=== PATIENT | female | born 1970 | race Caucasian/White ===

== ENCOUNTER → 2016-10-26 | Outpatient (CLI) | payer OTHER ==
[~2016-10-26] MED LIST: CHOL2000 PO; CIPR-255 PO; FOLI1TAB7 PO; LANS15CA6 PO; LEVE500T13 PO; LORA-741 PO; METF850T PO; MISCCAP80 PO; MULT-1018 PO; NAPR250T2 PO; OXYC-57 PO; SPIR50TA2 PO; VITA1CAP4 PO
--- NOTE | 2016-10-26 11:39 | DIAGNOSTIC IMAGING REPORT ---
CT SINUSES WITH BRAIN LAB CT DOSE: 285.25 mGycm CLINICAL HISTORY: Chronic sinusitis. TECHNIQUE: Axial images of the sinuses were obtained without IV contrast. Sagittal and coronal reconstructions were viewed. COMPARISON STUDY: None. FINDINGS: Visualized portions of the intracranial contents are unremarkable on this unenhanced exam. Mastoid air cells are clear. There is no fluid within the middle ears. There is a small air-fluid level within the right maxillary sinus. A 1.3 cm round density within the inferior aspect of the right maxillary sinus likely reflects a mucous retention cyst. Postsurgical findings are noted, including postsurgical findings within the ethmoid air cells and a resection of a portion of the medial wall the right maxillary sinus. There are small joel bullosa of the bilateral middle turbinates. Note is made of mild leftward deviation of the nasal septum without significant spur formation. Cribriform plate is intact. There is moderate mucosal thickening with secretions within the left frontal sinus. IMPRESSION: 1. Small air-fluid level within the right maxillary sinus and secretions within the left frontal sinus which may reflect acute sinusitis. 2. Otherwise, mild mucosal thickening of the sinuses. 3. Postsurgical findings within the ethmoid and maxillary sinuses, as described above. 4. Mild leftward deviation of the nasal septum. Electronically signed by: Lorenzo Morris M.D. 10/26/2016 11:38 AM Dictated Date/Time: 10/26/2016 11:33 AM
== END | disposition home or self-care (01) ==
LOC: C.CTS 11:03
PROVIDERS: ATTEND Otolaryngology
DX: J32.9 Chronic sinusitis, unspecified (principal); J34.2 Deviated nasal septum

== ENCOUNTER → 2016-12-08 | Day surgery (SDC) | payer OTHER ==
[2016-11-30 11:35] VITALS: Ht 170.2 cm; Wt 93.2 kg
[~2016-12-08] VITALS: Ht 170.2 cm; Wt 93.2 kg
[~2016-12-08] MED LIST changes: +ATROPINE SULFATE 0.1 MG/ML 5ML SYR IV PRN; +CEFAZOLIN 2000 MG/60 ML D5W IV SCH; +DEXAMETHASONE SOD INJ 4 MG/ML VIAL ONE; +EpHEDrine SULFATE 50MG/5ML SYR ONE; +EpHEDrine SULFATE INJ 50 MG/ML AMP IV PRN; +EpINEphrine INJ 1MG/ML AMP 1 MG/ML AMP ONE; +FENTANYL CITRATE INJ 50 MCG/1 ML 2 ML VIAL IV PRN; +FENTANYL CITRATE INJ 50 MCG/1 ML 2 ML VIAL ONE; +LACTATED RINGER'S 1000ML 1,000 ML IV SCH; +LIDO 2%/EPINEPHRINE 1:100000 20 ML VIAL INFIL ONE; +LIDOCAINE 4% MPF SOAK 5 ML = 1 DOSE TOP ONE; +LIDOCAINE HCL 2% 2 ML VIAL (20MG/ML) ONE; +MIDAZOLAM HCL 1 MG/ML 2ML VIAL ONE; +NAPR1TAB48 PO; -NAPR250T2 PO; +ONDANSETRON INJ 2 MG/ML 2 ML VIAL IV PRN; +ONDANSETRON INJ 2 MG/ML 2 ML VIAL ONE; +OXYCODONE/ACETAMINOPHEN 5-325 TAB PO PRN; +OXYMETAZOLINE HCL 0.05% NA SPR 15 ML BTL SCH; +PROMETHAZINE HCL INJ 6.25 MG in SODIUM CHLORIDE 0.9% 50ML 50 ML IV PRN; +PROPOFOL IV EMULSION 10 MG/ML 20 ML VIAL IV ONE; +SODIUM CHLORIDE 0.9% 1000ML 1,000 ML IV SCH
--- NOTE | 2016-12-08 00:26 | HISTORY & PHYSICAL EXAMINATION ---
DATE OF ADMISSION: 12/08/2016 DIAGNOSIS: Chronic sinusitis. HISTORY OF PRESENT ILLNESS: This 46-year-old lady presented with significant recurrent and chronic sinusitis. She previously had sinus surgery but continues to get worse with recurrent and chronic sinusitis. PAST MEDICAL HISTORY: Medical problems, acid reflux. PREVIOUS SURGERIES: Tubal ligation, ovarian cystectomy and sinus surgery. ALLERGIES: No known drug allergies. MEDICATIONS: Spironolactone 50 mg a day, metformin 850 mg a day, folic acid and Prevacid. PHYSICAL EXAMINATION: GENERAL: WN, WD female. VITAL SIGNS: 5 feet 7 inches, 205 pounds. HEAD: Normocephalic. EYES: Normal. EARS: Tympanic membranes intact. NOSE: Nasal passages show a significant swelling of the turbinates. THROAT: Oropharynx normal. NECK: Supple. HEART: RRR. LUNGS: Clear. ABDOMEN: Soft. GENITOURINARY: Deferred. EXTREMITIES: Full range of motion. The CT scan documented significant fluid level within the maxillary and frontal sinuses and also mucous retention cysts. There are also postsurgical changes in the ethmoid and maxillary sinuses. IMPRESSION: Chronic sinusitis. PLAN: For endoscopic sinus surgery.
--- NOTE | 2016-12-08 07:34 | History & Physical Bridge Note ---
H&P Re-Evaluation Bridge Note: I have examined the patient, reviewed the History & Physical and in the interval since the performance of the History & Physical I have noted the following changes of clinical significance: No changes noted
--- NOTE | 2016-12-08 12:22 | DIAGNOSTIC IMAGING REPORT ---
SURGICENTER CHEST 1 VIEW PORTABLE CLINICAL HISTORY: PATIENT IS WHEEZING, POST OP CHEST X-RAY pain. Dyspnea. COMPARISON STUDY: 12/08/2016 FINDINGS: The bones soft tissues and hemidiaphragms are normal. The cardiomediastinal silhouette is normal. The lungs are clear. The pulmonary vasculature is normal. IMPRESSION: Negative chest. Electronically signed by: Paolo Haskins M.D. 12/08/2016 12:20 PM Dictated Date/Time: 12/08/2016 12:19 PM
--- NOTE | 2016-12-08 13:02 | Discharge Instructions-SurgCtr ---
Discharge Instructions Date of Service Dec 08, 2016. Visit Reason for Visit: Chronic Sinusitis Discharge Discharge Diagnosis / Problem: same Discharge Goals Goal(s): Improve disease control Medications Stopped Medications Name(s): Metformin/PCOS Activity Recommendations Activity Limitations: resume your previous activity Anesthesia . Post Anesthesia Instructions: If you have had General Anesthesia or IV Sedation: * Do not drive today. * Resume driving when surgeon permits. * Do not make important decisions or sign legal documents today. * Call surgeon for: 1. Temperature elevations greater than 101 degrees F. 2. Uncontrollable pain. 3. Excessive bleeding. 4. Persistent nausea and vomiting. 5. Medication intolerance (nausea, vomiting or rash). * For nausea and vomiting use only clear liquids such as: tea, soda, bouillon until nausea subsides, then gradually increase diet as tolerated. * If you have any concerns or questions, call your surgeon's office. If physician is unavailable and it is an emergency, call 911 or go to the nearest emergency room. . Instructions / Follow-Up Instructions / Follow-Up ACTIVITY RECOMMENDATIONS: * Being up and around is good, but no strenuous activity, heavy lifting or physical exertion for one week. * Keep your head elevated 30 degrees when lying down or sleeping. * Do not blow your nose for 48 hours, sniff back instead. * Avoid hot showers. OVER THE COUNTER MEDICATIONS: * You may use Tylenol * Avoid aspirin or aspirin containing products, e.g. as they may increase bleeding. SPECIAL CARE INSTRUCTIONS: * Expect to have bloody drainage from your nose and/or down your throat for one to three days. Change drip pad as needed. * Begin irrigating your nose with saline solution today, at least six to ten times per day and sniff back to help remove old clots or crust. * You may experience nasal and facial congestion, pain and pressure, this is normal. * Please call with any significant and/or progressive pain, redness, swelling around the eyes, visual changes, fever of 101.5 degrees F, active bleeding or any problems or concerns. * If active bleeding occurs, spray the nose three times at one minute intervals with Afrin spray and call or cell phone: . If unable to reach the doctor, go to the nearest Emergency Department. Special Diet: * Avoid extremely hot fluids. FOLLOW UP VISIT: Follow-up Visit with Dr. Zaldivar If not already scheduled, please call to schedule. Diet Recommendations Home Diet: no limitations Pending Studies Studies pending at discharge: no Medical Emergencies . Who to Call and When: Medical Emergencies: If at any time you feel your situation is an emergency, please call 911 immediately. . Non-Emergent Contact Non-Emergency issues call your: Primary Care Provider . . "Provider Documentation" section prepared by Carina Zaldivar. [place] Drug Monitoring Program Search Results: no issues identified
--- NOTE | 2016-12-08 15:36 | Anesthesia Progress Nt - [facility] ---
Anesthesia Post Op Note Date & Time Dec 08, 2016 at 15:35 Vital Signs Pain Intensity: 0 Vital Signs Past 12 Hours Date Time Temp Pulse Resp B/P Pulse Ox O2 Delivery O2 Flow Rate FiO2 12/08/16 15:23 89 16 140/90 97 Room Air 12/08/16 15:13 90 14 128/78 95 12/08/16 15:13 89 14 12/08/16 15:12 36.8 92 16 125/89 95 Room Air 12/08/16 15:08 88 15 93 12/08/16 15:08 87 15 12/08/16 15:05 130/87 12/08/16 15:03 92 14 94 12/08/16 15:03 95 14 12/08/16 15:01 128/83 12/08/16 14:58 90 18 95 12/08/16 14:58 89 18 12/08/16 14:55 141/89 12/08/16 14:53 89 14 12/08/16 14:53 90 14 99 12/08/16 14:50 141/89 12/08/16 14:48 92 20 12/08/16 14:48 92 20 98 12/08/16 14:45 145/96 12/08/16 14:43 93 14 12/08/16 14:43 90 14 98 12/08/16 14:40 136/96 12/08/16 14:38 90 17 12/08/16 14:38 89 17 99 12/08/16 14:35 137/87 12/08/16 14:33 95 19 12/08/16 14:33 96 19 99 12/08/16 14:30 151/82 12/08/16 14:28 86 20 12/08/16 14:28 87 20 100 12/08/16 14:25 133/87 12/08/16 14:24 130/80 12/08/16 14:23 37.2 92 16 130/80 100 Diffusion Mask 6 12/08/16 14:23 99 12/08/16 14:23 99 99 12/08/16 11:13 36.7 72 20 137/88 98 Room Air Notes Mental Status: alert / awake / arousable, participated in evaluation Pt Amnestic to Procedure: Yes Nausea / Vomiting: adequately controlled Pain: adequately controlled Airway Patency, RR, SpO2: stable & adequate BP & HR: stable & adequate Hydration State: stable & adequate Anesthetic Complications: no major complications apparent
--- NOTE | 2016-12-08 15:37 | OPERATIVE REPORT ---
DATE OF OPERATION: 12/08/2016 PREOPERATIVE DIAGNOSIS: Chronic sinusitis. POSTOPERATIVE DIAGNOSIS: Same. PROCEDURE: Right and left frontal, right and left total ethmoid and right and left maxillary sinus antrostomies. SURGEON: Carina Zaldivar MD ANESTHESIA: General LMA. COMPLICATIONS: None. BLOOD LOSS: 30 mL. HISTORY OF PRESENT ILLNESS: A 46-year-old lady with significant recurrent chronic sinusitis. Her previous sinus surgery by me 6 years ago, she did well for a while. 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 DESCRIPTION OF PROCEDURE: The patient brought to the operating room and placed in supine position. General anesthesia was induced, prepped, draped in usual sterile manner. The nose was decongested using cottonoids with topical solution of 4 mL of 4% Xylocaine mixed with 1 mL of with 1:100,000 strength epinephrine. Injection of 2% Xylocaine with 1:100,000 strength epinephrine was also used. Innoverne device was calibrated and used for the entire procedure. The left frontal sinus was approached. There was a stenosis of the left nasofrontal duct. The anterior wall of residual agger nasi cell was removed using the shaver, coupled with the [employer] device exposing the beak of the nasofrontal duct, which was formed by a supraethmoidal air cell medially and then the frontal sinus laterall. This beak had to be located using the small metal suction coupled with the [employer] device. The beak was fractured laterally to expose the nasofrontal duct. At this point, the nasofrontal duct was cannulated with a guidewire with the [employer] computer guidance confirming entry into the frontal sinus with Madeline wire lighting up the forehead and then the balloon was expanded to 12 atmospheric pressures to 6 mm. The balloon was left in place inflated until the mini Propel stent was placed into the nasofrontal duct. At this point, total ethmoidectomy was completed by removing the adhesions from the middle turbinate to the lateral wall obstructing the ostiomeatal complex. The maxillary sinus was dilated using the 6-mm balloon and then opened by removing the adhesions from the maxillary sinus ostium. Residual adhesions posteriorly were also removed, opening up the entire ethmoid cavity. On the right side, the nasofrontal duct could be cannulated easily; however, residual anterior and posterior wall of the agger nasi cell was removed to further open the nasofrontal duct and adhesions to the lateral wall from the middle turbinate covering the middle meatus were removed using the shaver. Also, there was a posterior ethmoid air cell that was not opened previously, but was opened under Brain[employer] computer guidance with the shaver and the maxillary ostia was found to have a small missed ostia syndrome or may have been an adhesion that grew across the ostia. This was found using the seeker and then connected to the antrostomy opening and then opened using the shaver. In this manner, the right frontal sinusotomy, total ethmoidectomy, and maxillary sinus antrostomy was finished. Propel stents were placed into the middle meatus area with 1 mini Propel in the left nasofrontal duct and then 2 regular stent in the middle meatus area, one on each side. The patient tolerated the procedure well and was taken to recovery area in satisfactory condition. I attest to the content of the Intraoperative Record and any orders documented therein. Any exceptio ns are noted below.
[2016-12-08 15:52] VITALS: BP 125/86; PULSE 70; TEMP 36.6; O2SAT 97
== END | disposition home or self-care (01) ==
LOC: X.SURG 11:00
PROVIDERS: ATTEND Otolaryngology
DX: J32.9 Chronic sinusitis, unspecified (principal); K21.9 Gastro-esophageal reflux disease without esophagitis; Z98.890 Other specified postprocedural states

== ENCOUNTER → 2017-03-06 | Outpatient (CLI) | payer OTHER ==
[~2017-03-06] MED LIST changes: -ATROPINE SULFATE 0.1 MG/ML 5ML SYR IV PRN; -CEFAZOLIN 2000 MG/60 ML D5W IV SCH; -DEXAMETHASONE SOD INJ 4 MG/ML VIAL ONE; -EpHEDrine SULFATE 50MG/5ML SYR ONE; -EpHEDrine SULFATE INJ 50 MG/ML AMP IV PRN; -EpINEphrine INJ 1MG/ML AMP 1 MG/ML AMP ONE; -FENTANYL CITRATE INJ 50 MCG/1 ML 2 ML VIAL IV PRN; -FENTANYL CITRATE INJ 50 MCG/1 ML 2 ML VIAL ONE; -LACTATED RINGER'S 1000ML 1,000 ML IV SCH; -LIDO 2%/EPINEPHRINE 1:100000 20 ML VIAL INFIL ONE; -LIDOCAINE 4% MPF SOAK 5 ML = 1 DOSE TOP ONE; -LIDOCAINE HCL 2% 2 ML VIAL (20MG/ML) ONE; -MIDAZOLAM HCL 1 MG/ML 2ML VIAL ONE; -NAPR1TAB48 PO; +NAPR250T2 PO; -ONDANSETRON INJ 2 MG/ML 2 ML VIAL IV PRN; -ONDANSETRON INJ 2 MG/ML 2 ML VIAL ONE; -OXYCODONE/ACETAMINOPHEN 5-325 TAB PO PRN; -OXYMETAZOLINE HCL 0.05% NA SPR 15 ML BTL SCH; -PROMETHAZINE HCL INJ 6.25 MG in SODIUM CHLORIDE 0.9% 50ML 50 ML IV PRN; -PROPOFOL IV EMULSION 10 MG/ML 20 ML VIAL IV ONE; -SODIUM CHLORIDE 0.9% 1000ML 1,000 ML IV SCH
[2017-03-06 18:39] LABS: RHEUMATOID FACTOR 10.6 U/mL (0-15)
[2017-03-10 07:06] LABS: 18KDIGG BAND NONREACTIVE (NONREACTIVE); 23KDIGG BAND NONREACTIVE (NONREACTIVE); 23KDIGM BAND NONREACTIVE (NONREACTIVE); 28KDIGG BAND NONREACTIVE (NONREACTIVE); 30KDIGG BAND NONREACTIVE (NONREACTIVE); 39KDIGG BAND REACTIVE (NONREACTIVE); 39KDIGM BAND NONREACTIVE (NONREACTIVE); 41KDIGG BAND REACTIVE (NONREACTIVE); 41KDIGM BAND NONREACTIVE (NONREACTIVE); 45KDIGG BAND NONREACTIVE (NONREACTIVE); 58KDIGG BAND NONREACTIVE (NONREACTIVE); 66KDIGG BAND REACTIVE (NONREACTIVE); 93KDIGG BAND NONREACTIVE (NONREACTIVE)
== END | disposition home or self-care (01) ==
LOC: C.LAB1850 16:21
PROVIDERS: ATTEND Internal Medicine Infectious Disease
DX: G40.909 Epilepsy, unspecified, not intractable, without status epilepticus (principal)

== ENCOUNTER → 2017-03-14 | Outpatient (CLI) | payer OTHER ==
[~2017-03-14] MED LIST changes: +GADAVIST IV PRN
--- NOTE | 2017-03-14 11:19 | DIAGNOSTIC IMAGING REPORT ---
BRAIN COMBO FOR SEIZURE HISTORY:46 [id number] COMPARISON: CT of the sinuses 10/26/2016. TECHNIQUE: Multiplanar multisequence MRI of the brain was obtained both with and without the use of 9.5 mL Gadavist. FINDINGS: There is no restricted diffusion to suggest acute ischemia. The midline structures including the corpus callosum, brainstem, optic chiasm, infundibulum, pituitary gland and peroneal gland. Unremarkable knee sagittal T1 sequence. No cerebellar tonsillar herniation. There is no acute intracranial hemorrhage, midline shift, abnormal extra-axial collections, hydrocephalus or intracranial mass. There are a few areas of periventricular and subcortical T2 prolongation, notably within the frontal lobes bilaterally. There is no abnormal enhancement identified. There is no evidence of mesial temporal sclerosis. Bilateral epicanthal formations appear to be within normal limits. There is no evidence of cortical dysplasia. There is mild cerebral atrophy. Flow voids at the level skull base appear normal. Orbits are symmetric. Mastoid air cells middle ear cavities are clear. There is mild polypoid mucosal thickening of the inferior right maxillary antrum. Mild ethmoid sinus disease. IMPRESSION: 1. No acute intracranial abnormality. No evidence of abnormal enhancement, acute ischemia or mesial temporal sclerosis. 2. A few scattered areas of T2 prolongation within the periventricular and subcortical frontal lobes, left greater than right are nonspecific findings and may reflect gliosis from indeterminate cause or mild chronic microvascular ischemic changes. 3. Mild right maxillary and ethmoid sinus disease. The above report was generated using voice recognition software. It may contain grammatical, syntax or spelling errors. Electronically signed by: Noe Zaragoza M.D. 03/14/2017 11:18 AM Dictated Date/Time: 03/14/2017 11:11 AM
== END | disposition home or self-care (01) ==
LOC: C.MRI 08:48
PROVIDERS: ATTEND Internal Medicine Infectious Disease
DX: R56.9 Unspecified convulsions (principal); J01.20 Acute ethmoidal sinusitis, unspecified; J01.00 Acute maxillary sinusitis, unspecified

== ENCOUNTER 2017-05-16 07:19 | Day surgery (SDC) | payer OTHER ==
[~2017-05-16] VITALS: Ht 167.6 cm; Wt 96.7 kg
[2017-05-16] VITALS (10 sets, daily range): BP systolic 111–141; BP diastolic 62–83; PULSE 52–66; TEMP 36.5–36.9; O2SAT 93–100; Ht 167.6 cm; Wt 96.7 kg
[~2017-05-16 07:19] MED LIST changes: -GADAVIST IV PRN; -LEVE500T13 PO; -NAPR250T2 PO
[2017-05-16] MEDS ORDERED: NAPR250T2 PO (08:18)
[2017-05-16] MEDS ORDERED: LEVE500T13 PO (08:18)
--- NOTE | 2017-05-16 09:41 | Discharge Instructions ---
Discharge Instructions Procedure Procedure Date: May 16, 2017. Reason for visit: Seizure Disorder. Discharge Discharge Date: May 16, 2017. Discharge Diagnosis: Seizure Disorder Instructions Activity Recommendations: 1 Day-May resume regular activity Return to School/Work: no limitations Recommended Home Diet: Resume Previous Diet Allergies Coded Allergies: NO KNOWN DRUG ALLERGIES (Verified Allergy, Unknown, ., 05/16/17) Laura Echavarria Recommendations: Call your doctor if: * Temperature above 101 degrees * Pain not relieved by pain medicine ordered * There is increased drainage or redness from any incision * You have any unanswered questions or concerns. Your Doctors Instructions noted above were prepared by provider Miguel Espinal. Patient Signature Section: Patient Instructions Signature Page Heather Christie Patient (or Guardian) Signature/Date: I have read and understand the instructions given to me by my caregivers. Caregiver/RN/Doctor Signature/Date: The above-named patient and/or guardian has received patient instructions on this date. + Original Patient Signature Page (only) stays with chart. Please make copy for patient.
--- NOTE | 2017-05-16 09:44 | DIAGNOSTIC IMAGING REPORT ---
FLUOROSCOPICALLY GUIDED DIAGNOSTIC LUMBAR PUNCTURE CLINICAL HISTORY: Seizure disorder COMPARISON STUDY: No previous studies for comparison. FINDINGS: 18 seconds of fluoroscopic time was utilized. A single fluoroscopic spot image was obtained. A timeout was performed. The risks the procedure were explained the patient informed consent was obtained. The patient was prepped and draped in sterile fashion. Under fluoroscopic guidance, lumbar puncture was performed at the L4-5 level. A spinal needle was introduced into the subarachnoid space. 8 cc of clear CSF was withdrawn under gravity drip and 4 tubes. The fluid was sent for laboratory analysis as specified by the referring clinician. There were no immediate complications. IMPRESSION: Successful fluoroscopically guided diagnostic lumbar puncture the L4-5 level. 8 cc of clear CSF was withdrawn and sent for laboratory analysis. Electronically signed by: Miguel Espinal M.D. 05/16/2017 9:42 AM Dictated Date/Time: 05/16/2017 9:41 AM
[2017-05-16] MEDS ORDERED: ACETAMINOPHEN 500 MG TAB PO PRN (09:45)
[2017-05-16 10:26] LABS: CSF TOTAL PROTEIN 39.4 mg/dl (15.0-45.0)
[2017-05-16 10:45] LABS: CSF APPEARANCE CLEAR; CSF COLOR COLORLESS; CSF XANTHOCHROMIC NO XANTHOCHROMIA
[2017-05-22 20:40] LABS: ALBUMIN 3.6 g/dL (3.5-4.9); IGG CSF 2.2 mg/dL (0.8-7.7); IGG SERUM 1090 mg/dL (694-1618); LYME AB INDEX SCREENED NEGATIVE; MYELIN BASIC PROTEIN 663 <2.0 mcg/L (0.0-4.0)
== END 2017-05-16 14:20 | disposition home or self-care (01) ==
LOC: C.ACU 07:19
PROVIDERS: ATTEND Internal Medicine Infectious Disease
DX: G40.909 Epilepsy, unspecified, not intractable, without status epilepticus (principal)

== ENCOUNTER → 2017-09-21 | Outpatient (CLI) | payer OTHER | END | disposition home or self-care (01) | LOC: C.NEUR 13:27 | DX: R56.9 Unspecified convulsions (principal) ==

== ENCOUNTER → 2017-12-21 | Outpatient (CLI) | payer OTHER ==
[~2017-12-21] MED LIST changes: -CIPR-255 PO; -FOLI1TAB7 PO; +LEVE500T13 PO; -MISCCAP80 PO; -MULT-1018 PO; +NAPR1TAB48 PO; -OXYC-57 PO
--- NOTE | 2017-12-21 13:29 | DIAGNOSTIC IMAGING REPORT ---
ABD/PELVIS ORAL CONT ONLY CLINICAL HISTORY: 47 years-old Female presenting with R10.32 Left lower quadrant abdominal pain of unknown etiology. TECHNIQUE: Multidetector CT of the abdomen and pelvis was performed after the administration of oral contrast only. IV contrast: None. A dose lowering technique was used consistent with the principles of ALARA (as low as reasonably achievable). COMPARISON: None. CT DOSE (mGy.cm): The estimated cumulative dose is 1447.37 mGy.cm. FINDINGS: [employer] topogram: Clips noted in the bilateral adnexa. Lung bases: Lungs and pleural spaces clear. Normal heart size. No pericardial or pleural effusion. Liver: Normal morphology. Density consistent with hepatic steatosis. Biliary: No gross biliary ductal dilatation allowing for noncontrast technique. Normal gallbladder. Pancreas: Moderate parenchymal atrophy. Spleen: Normal noncontrast appearance. Splenule noted at the medial aspect of the upper pole the spleen. Adrenal glands: Normal noncontrast appearance. Kidneys and ureters: The kidneys demonstrate diffuse cortical atrophy as well as overall expansion by innumerable parapelvic or peripelvic cysts. Prominent 8 mm calculus in the left kidney (series 3 image 178). Several additional calculi evident at the lower pole the left kidney, the largest measuring 9 mm. No right renal calculi. Mild nonspecific perinephric fat stranding. Evaluation for hydronephrosis is difficult due to the degree of parapelvic cysts, however, the ureters are nondilated. The ureters are normal. Bladder: Incompletely evaluated secondary to underdistention. Pelvic organs: Normal noncontrast appearance. Bilateral fallopian tube clips noted. Bowel: Normal appendix. No bowel obstruction. Peritoneal cavity: No free fluid or intraperitoneal gas. Lymph nodes: No gross lymphadenopathy allowing for noncontrast technique. Vasculature: Normal noncontrast appearance. Abdominal wall: Small fat-containing umbilical hernia. Musculoskeletal: Mild anterior vertebral body height loss of T11. Mild osteopenia may be present. IMPRESSION: 1. No acute intra-abdominal pathology allowing for noncontrast technique. 2. Bilateral renal cortical atrophy suggesting chronic medical renal disease. Additionally, numerous bilateral parapelvic or peripelvic cysts. No convincing evidence of hydronephrosis. 3. Left nephrolithiasis. 4. Hepatic steatosis. 5. Mild anterior vertebral body height loss of T11. Correlate with point tenderness to exclude acute compression deformity. Electronically signed by: Ángel Graham M.D. 12/21/2017 1:27 PM Dictated Date/Time: 12/21/2017 1:19 PM
== END | disposition home or self-care (01) ==
LOC: C.CTS 13:00
PROVIDERS: ATTEND Family Medicine
DX: R10.32 Left lower quadrant pain (principal); N26.1 Atrophy of kidney (terminal); R93.5 Abnormal findings on diagnostic imaging of other abdominal regions, including retroperitoneum; N20.0 Calculus of kidney; K76.0 Fatty (change of) liver, not elsewhere classified

== ENCOUNTER → 2018-01-11 | Outpatient (CLI) | payer OTHER ==
--- NOTE | 2018-01-11 12:12 | DIAGNOSTIC IMAGING REPORT ---
CHEST 2 VIEWS ROUTINE CLINICAL HISTORY: CALCULUS OF KIDNEY PREOPERATIVE CHEST COMPARISON STUDY: 12/08/2016 FINDINGS: The heart is normal in size. There are linear by basilar opacities consistent with subsegmental atelectasis. There is no lobar consolidation. There is no failure. There is blunting of the left lateral costophrenic angle. This could indicate a trace pleural effusion, or be secondary to left basilar atelectasis IMPRESSION: 1. Bibasilar subsegmental atelectatic changes 2. No evidence of failure. Electronically signed by: Miguel Espinal M.D. 01/11/2018 12:11 PM Dictated Date/Time: 01/11/2018 12:09 PM
[2018-01-11 13:12] LABS: BASO % 0.1 %; BASO ABS # 0.01 K/uL (0-0.2); EOS ABS # 0.13 K/uL (0-0.5); HEMOGLOBIN 10.5 g/dL (12.0-16.0); IG# 0.03 K/uL (0.00-0.02); LYMPH ABS # 1.06 K/uL (1.2-3.4); MEAN CORPUSCULAR HEMOGLOBIN 26.3 pg (25-34); MEAN CORPUSCULAR HGB CONC 32.8 g/dl (32-36); MEAN PLATELET VOLUME 9.3 fL (7.4-10.4); MONO % 8.4 %; MONO ABS # 1.12 K/uL (0.11-0.59); NEUT % 82.3 %; NEUT ABS # 10.98 K/uL (1.4-6.5); PLATELET COUNT 450 K/uL (130-400); RED CELL DISTRIBUTION WIDTH CV 15.8 % (11.5-14.5); RED CELL DISTRIBUTION WIDTH SD 46.3 fL (36.4-46.3); WHITE BLOOD COUNT 13.33 K/uL (4.8-10.8)
[2018-01-11 13:42] LABS: ALBUMIN 2.4 gm/dl (3.4-5.0); ALT/SGPT 20 U/L (12-78); AST/SGOT 12 U/L (15-37); BLOOD UREA NITROGEN 17 mg/dl (7-18); CALCIUM 8.7 mg/dl (8.5-10.1); CARBON DIOXIDE 27 mmol/L (21-32); CREATININE 1.41 mg/dl (0.60-1.20); GLUCOSE 80 mg/dl (70-99); POTASSIUM 3.7 mmol/L (3.5-5.1); SODIUM 136 mmol/L (136-145)
[2018-01-11 13:53] LABS: ALKALINE PHOSPHATASE 94 U/L (45-117); TOTAL PROTEIN 7.2 gm/dl (6.4-8.2)
== END | disposition home or self-care (01) ==
LOC: C.CPL 11:15
PROVIDERS: ATTEND Urology
DX: N20.0 Calculus of kidney (principal); R41.3 Other amnesia; G40.909 Epilepsy, unspecified, not intractable, without status epilepticus

== ENCOUNTER → 2018-03-29 | Outpatient (CLI) | payer OTHER ==
[~2018-03-29] MED LIST changes: -CHOL2000 PO; +CIPR-255 PO; +HYDR-5688 PO; +MULT-580 PO; -NAPR1TAB48 PO; +POTASSIUM PO; +PSYL48.59 PO; -VITA1CAP4 PO
--- NOTE | 2018-03-29 12:40 | DIAGNOSTIC IMAGING REPORT ---
ABDOMEN 2VIEW W/PA CHEST RTN HISTORY: 47 years-old Female R10.9 Abdominal pain acute generalized abdominal pain COMPARISON: [facility] 02/21/2018 TECHNIQUE: PA view of the chest with erect and supine views of the abdomen FINDINGS: Cardiomediastinal and hilar silhouettes are within normal limits. Mild right hemidiaphragmatic elevation. Linear subsegmental bibasilar opacities. No pneumothorax, pleural effusion or overt pulmonary edema. The bones of the chest appear grossly intact. Enteric contrast is noted within the large bowel. Moderate formed colonic stool is also noted throughout the colon extending from the cecum through the transverse colon. Bowel gas pattern is nonobstructive. No pneumatosis or pneumoperitoneum. Surgical clips project over the pelvis. Interval removal of the previously noted left ureteral stent. No urolith identified. IMPRESSION: 1. Linear subsegmental bibasilar opacities suggest atelectasis or scarring. 2. No acute process of the chest. 3. Nonobstructive bowel gas pattern. The above report was generated using voice recognition software. It may contain grammatical, syntax or spelling errors. Electronically signed by: Noe Zaragoza M.D. 03/29/2018 12:39 PM Dictated Date/Time: 03/29/2018 12:37 PM
== END | disposition home or self-care (01) ==
LOC: C.RAD 12:02
PROVIDERS: ATTEND Family Medicine
DX: R10.9 Unspecified abdominal pain (principal); R91.8 Other nonspecific abnormal finding of lung field

== ENCOUNTER → 2018-04-12 | Outpatient (CLI) | payer OTHER ==
[~2018-04-12] MED LIST changes: -CIPR-255 PO; -HYDR-5688 PO; +IRON IV
--- NOTE | 2018-04-12 12:08 | DIAGNOSTIC IMAGING REPORT ---
PELVIC ULTRASOUND, TRANSABDOMINAL AND TRANSVAGINAL HISTORY: Abnormal CT scan. Follow-up. COMPARISON: Outside hospital abdomen and pelvis CT 01/05/2018. FINDINGS: Uterus: 8.6 x 5.2 x 5.6 cm. No uterine masses. A few small nabothian cysts identified within the cervix. Endometrial stripe: 1 cm in thickness. Right ovary: Normal in size and demonstrates normal color flow. A few small follicles/cysts with the largest measuring 1.4 cm. Left ovary: Normal in size and demonstrates normal color flow. This is not well visualized due to overlying bowel gas. Miscellaneous:No pelvic free fluid. IMPRESSION: No significant abnormality identified within the pelvis. Electronically signed by: Alonso Mcgraw M.D. 04/12/2018 12:06 PM Dictated Date/Time: 04/12/2018 12:02 PM
== END | disposition home or self-care (01) ==
LOC: C.ULTR 10:13
PROVIDERS: ATTEND Family Medicine
DX: R93.5 Abnormal findings on diagnostic imaging of other abdominal regions, including retroperitoneum (principal)

== ENCOUNTER → 2018-04-13 | Day surgery (SDC) | payer OTHER ==
[2018-04-10 08:06] VITALS: BMI 33.0
[~2018-04-13] VITALS: Ht 170.2 cm; Wt 97.7 kg
[~2018-04-13] MED LIST changes: +LIDOCAINE HCL 2% 2 ML VIAL (20MG/ML) ONE; +MIDAZOLAM HCL 1 MG/ML 2ML VIAL ONE; +ONDANSETRON INJ 2 MG/ML 2 ML VIAL ONE; +PROPOFOL IV EMULSION 10 MG/ML 20 ML VIAL ONE; +SODIUM CHLORIDE 0.9% 500ML 500 ML IV ONE
[2018-04-13 09:34] VITALS: Ht 170.2 cm; Wt 97.7 kg
--- NOTE | 2018-04-13 10:09 | Endo History and Physical ---
History & Physical Date of Service: Apr 13, 2018. Chief Complaint: CHANGE IN BOWEL HABITS, CONSTIPATION Referring Physician: DR. CALLAWAY History of Present Illness 47 yo CF who presents for colonoscopy secondary to change in bowel habits. Past Surgical History Hx Cardiac Surgery: No Hx Internal Defibrillator: No Hx Pacemaker: No Hx Abdominal Surgery: Yes (TUBAL LIGATION, OVARIAN CYSTS REMOVED, ) Hx of Implantable Prosthesis: No Hx Post-Op Nausea and Vomiting: No Hx Cancer Surgery: No Hx Thoracic Surgery: No Hx Orthopedic: No Hx Urinary Tract Surgery: Yes (LASER LITHOTRIPSY/STENT PLACED 2014) Family History IBD Social History Smoking Status: Never Smoker Hx Substance Use: No Hx Alcohol Use: No Allergies Coded Allergies: Phenazopyridine (Verified Allergy, Unknown, RED FACE, FACIAL SWELLING, 06/21) Current Medications Reported Home Medications Medications Dose Route/Sig Max Daily Dose Days Date Category Dose Instructions [Iron] 1 Dose IV WEEKLY 04/10/18 Reported LAST DOSE 04/13/18 Metamucil (Psyllium) 48.57 % Pow 1 Dose PO HS 01/26/18 Reported Hair/Skin/Nails (Multiple Vitamins W/ Minerals) 1 Tab Tab 2 Tab PO QAM 01/26/18 Reported [Potassium] 1 Tab PO HS 01/26/18 Reported Keppra (Levetiracetam) 500 Mg Tab 1,000 Mg PO BID 90 05/16/17 Reported Glucophage (Metformin Hcl) 850 Mg Tab 850 Mg PO HS 11/30/16 Reported Ativan (Lorazepam) 0.5 Mg Tab 0.5 Mg PO HS 11/30/16 Reported Aldactone (Spironolactone) 50 Mg Tab 50 Mg PO QAM 11/30/16 Reported Prevacid (Lansoprazole) 15 Mg Capcr 15 Mg PO QAM 11/30/16 Reported Vital Signs Weight (Kilograms): 97.73 Height (Feet): 5 Height (Inches): 7 Date Time Temp Pulse Resp B/P (MAP) Pulse Ox O2 Delivery O2 Flow Rate FiO2 04/13/18 09:39 36.7 62 20 137/85 (102) 98 Room Air Physical Exam General Appearance: WD/WN, no apparent distress Respiratory/Chest: Auscultation: breath sounds normal Cardiovascular: Heart Auscultation: RRR Abdomen: Bowel Sounds: normal Inspection & Palpation: soft, non-distended, no tenderness, guarding & rebound Assessment and Plan Assessment: 47 yo CF who presents for colonoscopy secondary to change in bowel habits. Plan: Proceed with colonoscopy.
--- NOTE | 2018-04-13 11:03 | Discharge Instructions ---
Endoscopy Patient Instructions Date / Procedure(s) Performed Apr 13, 2018. Colonoscopy Allergy Information Coded Allergies: Phenazopyridine (Verified Allergy, Unknown, RED FACE, FACIAL SWELLING, 06/21) Discharge Date / Findings Apr 13, 2018. Colon polyp Internal hemorrhoids Medication Instructions OK to resume all medications today as prescribed Reported Home Medications Medications Dose Route/Sig Max Daily Dose Days Date Category Dose Instructions [Iron] 1 Dose IV WEEKLY 04/10/18 Reported LAST DOSE 04/13/18 Metamucil (Psyllium) 48.57 % Pow 1 Dose PO HS 01/26/18 Reported Hair/Skin/Nails (Multiple Vitamins W/ Minerals) 1 Tab Tab 2 Tab PO QAM 01/26/18 Reported [Potassium] 1 Tab PO HS 01/26/18 Reported Keppra (Levetiracetam) 500 Mg Tab 1,000 Mg PO BID 90 05/16/17 Reported Glucophage (Metformin Hcl) 850 Mg Tab 850 Mg PO HS 11/30/16 Reported Ativan (Lorazepam) 0.5 Mg Tab 0.5 Mg PO HS 11/30/16 Reported Aldactone (Spironolactone) 50 Mg Tab 50 Mg PO QAM 11/30/16 Reported Prevacid (Lansoprazole) 15 Mg Capcr 15 Mg PO QAM 11/30/16 Reported Provider Instructions Activity Restrictions - No exercising or heavy lifting for 24 hours. - Do not drink alcohol the day of the procedure. - Do not drive a car or operate machinery until the day after the procedure. - Do not make any important decisions or sign important papers in 24 hours after the procedure. Following Day: - Return to full activity which may include returning to work/school. Diet Start your diet with liquids and light foods (jello, soup, juice, toast). Then eat your usual diet if not nauseated. Treatment For Common After Affects For mild abdominal pain, bloating, or excessive gas: - Rest - Eat lightly - Lie on right side Follow-Up Information Follow-up with DR. CALLAWAY as scheduled Anesthesia Information What You Should Know You have had a procedure that required some medicine to reduce anxiety and discomfort. This treatment is called moderate sedation. After receiving the treatment, you may be sleepy, but you will be able to breathe on your own. The effects of the treatment may last for several hours. Follow these instructions along with Activity/Diet recommendations noted above: * Do NOT do anything where dizziness or clumsiness would be dangerous. * Rest quietly at home today, then you can be up and about tomorrow. * Have a responsible person stay with you the rest of today. * You may have had an I.V. today. If so, you may take the dressing off later today. Recommendations Call your doctor if: * Trouble breathing * Continuous vomiting for more than 24 hours * Temperature above 101 degrees * Severe abdominal pain or bloating * Pain not relieved by pain medicine ordered * There is increased drainage or redness from any incision * A large amount of rectal bleeding greater than 2-3 tablespoons. (If you had a polyp/s removed or have hemorrhoids, a small amount of blood - from the rectum is to be expected.) * You have any unanswered questions or concerns. IN THE EVENT OF A SERIOUS EMERGENCY, GO TO THE NEAREST EMERGENCY ROOM Your discharge instructions were prepared by provider Leonardo Saravia. Patient Instructions Signature Page Heather Christie Patient (or Guardian) Signature/Date: I have read and understand the instructions given to me by my caregivers. Caregiver/RN/Doctor Signature/Date: The above-named patient and/or guardian has received patient instructions on this date. + Original Patient Signature Page (only) stays with chart. Please make copy for patient.
--- NOTE | 2018-04-13 11:11 | GI REPORT ---
Patient Name: Heather Christie Procedure Date: 04/13/2018 10:09 AM Date of : 1970 Admit Type: Outpatient Age: 47 Gender: Female Attending MD: Leonardo Saravia DO Procedure: Colonoscopy Providers: Leonardo Saravia DO Referring MD: Alfie Guzman Indications: Change in bowel habits Medicines: Monitored Anesthesia Care Complications: No immediate complications. Estimated Blood Loss: Estimated blood loss: none. Procedure: Pre-Anesthesia Assessment: - Prior to the procedure, a History and Physical was performed, and patient medications and allergies were reviewed. The patient's tolerance of previous anesthesia was also reviewed. The risks and benefits of the procedure and the sedation options and risks were discussed with the patient. All questions were answered, and informed consent was obtained. Prior Anticoagulants: The patient has taken no previous anticoagulant or antiplatelet agents. ASA Grade Assessment: II - A patient with mild systemic disease. After reviewing the risks and benefits, the patient was deemed in satisfactory condition to undergo the procedure. After I obtained informed consent, the scope was passed under direct vision. Throughout the procedure, the patient's blood pressure, pulse, and oxygen saturations were monitored continuously. The scope was introduced through the anus and advanced to the terminal ileum. The colonoscopy was performed without difficulty. The patient tolerated the procedure well. The quality of the bowel preparation was good. The terminal ileum, ileocecal valve, appendiceal orifice, and rectum were photographed. Findings: The perianal and digital rectal examinations were normal. A 3 mm polyp was found in the sigmoid colon. The polyp was sessile. The polyp was removed with a cold biopsy forceps. Resection and retrieval were complete. Non-bleeding internal hemorrhoids were found during retroflexion. The hemorrhoids were small. Impression: - One 3 mm polyp in the sigmoid colon, removed with a cold biopsy forceps. Resected and retrieved. - Non-bleeding internal hemorrhoids. Recommendation: - Resume previous diet. - Continue present medications. - Repeat colonoscopy for surveillance based on pathology results. - Return to primary care physician as previously scheduled. Leonardo Saravia DO 04/13/2018 11:11:11 AM This report has been signed electronically. Note Initiated On: 04/13/2018 10:09 AM Number of Addenda: 0 I attest to the content of the Intraoperative Record and orders documented therein, exceptions below {[id number]}
[2018-04-13 11:17] VITALS: BP 102/89; PULSE 71; O2SAT 99
--- NOTE | 2018-04-13 11:39 | Anesthesiology Progress Note ---
Anesthesia Post Op Note Date & Time Apr 13, 2018 at 11:39 Vital Signs Vital Signs Past 12 Hours Date Time Temp Pulse Resp B/P (MAP) Pulse Ox O2 Delivery O2 Flow Rate FiO2 04/13/18 11:17 71 20 102/89 (93) 99 Room Air 04/13/18 11:00 70 20 120/70 (87) 98 Room Air 04/13/18 10:46 62 20 111/71 (84) 95 Room Air 04/13/18 09:39 36.7 62 20 137/85 (102) 98 Room Air Notes Mental Status: alert / awake / arousable, participated in evaluation Pt Amnestic to Procedure: Yes Nausea / Vomiting: adequately controlled Pain: adequately controlled Airway Patency, RR, SpO2: stable & adequate BP & HR: stable & adequate Hydration State: stable & adequate Anesthetic Complications: no major complications apparent
== END | disposition home or self-care (01) ==
LOC: C.GI 08:55
PROVIDERS: ATTEND Internal Medicine
DX: R19.4 Change in bowel habit (principal); R10.9 Unspecified abdominal pain; D12.5 Benign neoplasm of sigmoid colon; K64.8 Other hemorrhoids; Z87.442 Personal history of urinary calculi

== ENCOUNTER 2019-11-04 05:57 | Observation (INO) ==
--- NOTE | 2019-10-21 12:01 | PAT Medication Instructions ---
Medication Instructions Date of Service October 21, 2019 Home Medications Medication Instructions Recorded lorazepam 0.5 mg tablet 0.5 mg PO BID PRN #60 tab 08/26/19 potassium citrate-citric acid 5 ml PO BID #900 ml 09/09/19 1,100 mg-334 mg/5 mL oral solution metformin 850 mg tablet 850 mg PO HS #90 tab 09/10/19 amoxicillin 875 mg-potassium 1 tab PO BID #20 tab 10/17/19 clavulanate 125 mg tablet Metamucil 1 tbsp PO HS calcium carbonate [Calcium 600] 600 mg PO HS allopurinol 100 mg tablet 100 mg PO QAM albuterol sulfate 2.5 mg INH Q4H PRN famciclovir 125 mg PO UD PRN lansoprazole [Prevacid] 30 mg PO QAM spironolactone 50 mg PO QAM diphenhydramine HCl [Benadryl] 50 mg PO BID PRN lorazepam 0.5 mg tablet 0.5 mg PO BID PRN potassium citrate-citric acid 1,100 mg-334 mg/5 mL oral solution 5 ml PO BID metformin 850 mg tablet 850 mg PO HS lamotrigine 100 mg tablet 100 mg PO BID lamotrigine 25 mg tablet 75 mg PO BID amoxicillin 875 mg-potassium clavulanate 125 mg tablet 1 tab PO BID Continue as directed famciclovir 125 mg PO UD PRN (if needed) amoxicillin 875 mg-potassium clavulanate 125 mg tablet 1 tab PO BID DO NOT take the morning of surgery spironolactone 50 mg PO QAM diphenhydramine HCl [Benadryl] 50 mg PO BID PRN potassium citrate-citric acid 1,100 mg-334 mg/5 mL oral solution 5 ml PO BID Take morning of surgery With a small sip of water, OTHERWISE NOTHING TO EAT OR DRINK AFTER MIDNIGHT: allopurinol 100 mg tablet 100 mg PO QAM albuterol sulfate 2.5 mg INH Q4H PRN (use if needed; please bring with you to hospital day of surgery if possible) lansoprazole [Prevacid] 30 mg PO QAM lorazepam 0.5 mg tablet 0.5 mg PO BID PRN (if needed) lamotrigine 100 mg tablet 100 mg PO BID lamotrigine 25 mg tablet 75 mg PO BID Take evening before surgery Metamucil 1 tbsp PO HS calcium carbonate [Calcium 600] 600 mg PO HS albuterol sulfate 2.5 mg INH Q4H PRN (if needed) diphenhydramine HCl [Benadryl] 50 mg PO BID PRN (if needed) lorazepam 0.5 mg tablet 0.5 mg PO BID PRN (if needed) potassium citrate-citric acid 1,100 mg-334 mg/5 mL oral solution 5 ml PO BID metformin 850 mg tablet 850 mg PO HS lamotrigine 100 mg tablet 100 mg PO BID lamotrigine 25 mg tablet 75 mg PO BID Other Notes If you have any questions please call us at [phone] or [phone] or [phone] or [phone]
--- NOTE | 2019-10-22 08:40 | Anesthesiology Consultation ---
Date of Service October 22, 2019 Assessment & Plan (1) Encounter for pre-operative examination: TEST AM DOS Chart Review Chart Review: Acceptable Risk for Surgery and Patient seen in Pre Admission Testing Teaching & Discussion Instructed NPO after midnight before surgery, except medications with 15 cc of water. Medication instructions provided according to the PAT guidelines. History Surgery Operation Date: 11/04/19 07:30 Proposed Procedures p Robotic Total Laparoscopic Hysterectomy - Sy Delgado MD, FACOG Height/Weight Height: 5 ft 7 in Weight: 99.2 kg Allergies Allergy/AdvReac Type Severity Reaction Status Date / Time phenazopyridine Allergy Intermediate RED FACE, Verified 10/22/19 09:05 FACIAL SWELLING Medications Home Medications Medication Instructions Recorded Confirmed Last Taken Metamucil 1 tbsp PO HS 01/22/19 10/22/19 08/06/19 21:00 calcium carbonate [Calcium 600] 600 mg PO HS 01/22/19 10/22/19 08/05/19 21:00 allopurinol 100 mg tablet 100 mg PO QAM 04/30/19 10/22/19 08/06/19 08:30 albuterol sulfate 2.5 mg INH Q4H PRN ml 05/19/19 10/22/19 1 Year Ago ~08/07/18 famciclovir 125 mg PO UD PRN 07/24/19 10/22/19 1 Month Ago ~07/08/19 lansoprazole [Prevacid] 30 mg PO QAM 07/24/19 10/22/19 08/07/19 08:30 spironolactone 50 mg PO QAM 07/24/19 10/22/19 08/05/19 21:00 diphenhydramine HCl [Benadryl] 50 mg PO BID PRN 08/07/19 10/22/19 08/06/19 21:00 lorazepam 0.5 mg tablet 0.5 mg PO BID PRN #60 tab 08/26/19 10/22/19 Unknown potassium citrate-citric acid 5 ml PO BID #900 ml 09/09/19 10/22/19 Unknown 1,100 mg-334 mg/5 mL oral solution metformin 850 mg tablet 850 mg PO HS #90 tab 09/10/19 10/22/19 Unknown lamotrigine 100 mg tablet 100 mg PO BID 09/25/19 10/22/19 Unknown lamotrigine 25 mg tablet 75 mg PO BID 09/25/19 10/22/19 Unknown amoxicillin 875 mg-potassium 1 tab PO BID #20 tab 10/17/19 10/22/19 Unknown clavulanate 125 mg tablet Past Medical History Medical History Anemia PT WAS RECEIVING IRON INFUSIONS, LAST INFUSION SEP 2018 Anxiety and depression Asthma Chronic kidney disease STAGE III GERD (gastroesophageal reflux disease) Kidney stones Osteoarthritis PCOS (polycystic ovarian syndrome) TAKES METFORMIN AND ALDACTONE 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 Seizure LAST EVENT 3 YEARS AGO (REASON FOR LAMICTAL) EPILEPSY Sleep apnea NO DEVICE, COULD NOT TOLERATE Exercise / Class Metabolic Activity II 4-5 Yardwork/Stairs/Walk up hill Past Surgical History Surgical History History of bilateral tubal ligation History of section History of colonoscopy History of cystoscopy CYSTO WITH LASER LITHO/EXTRACTION History of esophagogastroduodenoscopy (EGD) History of laparoscopy OVARIAN CYST REMOVAL History of lithotripsy 01/31/19 LMA 4 History of sinus surgery X2 History of surgery Bilateral fallopian tubal removal History of surgery 08/07/19 [facility] - Rt axillary lymph node biopsy (benign) & Open umbilical hernia repair Reading teeth removed Past Anesthesia History No Hx of Anesthesia Complications and No Family Hx of Anesthesia Complications History of PONV No Hx of PONV and No Hx of Motion Sickness Social History Smoking Status: Never smoker Smoking cigarettes per day: 0 Do You Dip or Chew Tobacco: No Hx Alcohol Use: No Hx Substance Use: No substance use type: does not use Review of Systems Pt denies any recent chest pain, shortness of breath, palpitations, fever or URI. +sinus drainage with reflexive cough Physical Exam Vital Signs BP: 144/86 P: 71bpm SPO2: 95% RA T: 97.9 F R: 16 ENMT Mouth: no dental restorations, no chipped teeth and no loose teeth Thyromental Distance: > or= 3.5 Finger Breadths (3.5) Mallampati Class: I Neck normal visual inspection; neck extension not limited Respiratory normal respiratory effort Auscultation: lungs clear to auscultation bilaterally Cardiovascular Rate/Rhythm: regular rate and regular rhythm Heart Sounds: no murmur Extremities: no edema Testing Laboratory Results 10/22/19 08:44 10/22/19 08:44 Blood Type O Positive 10/22/19 08:44 Antibody Screen NEGATIVE 10/22/19 08:44
[2019-10-22 10:31] LABS: Basophils # (auto) 0.03 K/uL (0-0.2); Basophils % (auto) 0.4 %; Eosinophils # (auto) 0.23 K/uL (0-0.5); Eosinophils % (auto) 3.4 %; Hematocrit (blood only) 49.7 % (37-47); Hemoglobin 16.5 g/dL (12.0-16.0); Immature Granulocytes # (auto) 0.02 K/uL (0.00-0.02); Immature Granulocytes % (auto) 0.3 %; Lymphocytes % (auto) 26.7 %; Mean Corpuscular Hemoglobin 31.4 pg (25-34); Mean Corpuscular Hgb Conc 33.2 g/dL (32-36); Mean Corpuscular Volume 94.7 fL (80-100); Monocytes # (auto) 0.46 K/uL (0.11-0.59); Monocytes % (auto) 6.8 %; Neutrophils # (auto) 4.19 K/uL (1.4-6.5); Neutrophils % (auto) 62.4 %; Platelet Count 300 K/uL (130-400); RDW Coefficient of Variation 12.6 % (11.5-14.5); RDW Standard Deviation 43.4 fL (36.4-46.3); Red Blood Count 5.25 M/uL (4.2-5.4); White Blood Count 6.73 K/uL (4.8-10.8)
[2019-10-22 11:28] LABS: BUN Creatinine Ratio 15.9 (10-20); Creatinine Clr Calc Pharmacy 71.8 ml/min; Est GFR (African American) 64.5; Est GFR (Non-African American) 55.6; Potassium 4.4 mmol/L (3.5-5.1)
[2019-11-04] MEDS ORDERED: LACTATED RINGER'S 1,000 ML IV SCH ×2 (06:00→11:36)
[2019-11-04] MEDS ORDERED: CEFAZOLIN 2000MG 2,000 MG/15 ML SYR IV SCH (06:00)
[2019-11-04] MEDS ORDERED: LR 15ML/HR IV SCH (06:00)
[2019-11-04] MEDS ORDERED: ONDANSETRON INJ 2 MG/ML 2 ML VIAL IV PRN ×2 (06:56→11:27)
[2019-11-04] MEDS ORDERED: PROMETHAZINE HCL 12.5 MG in SODIUM CHLORIDE 0.9% 50 ML IV PRN ×2 (06:56→11:27)
[2019-11-04] MEDS ORDERED: ATROPINE SULFATE 0.1 MG/ML 10ML SYR IV PRN (06:56)
[2019-11-04] MEDS ORDERED: HYDROmorphone INJ 2 MG/ML SYR/VIAL IV PRN (06:56)
[2019-11-04] MEDS ORDERED: ePHEDrine sulfate 50 MG/ML AMP IV PRN (06:56)
[2019-11-04] MEDS ORDERED: fentaNYL citrate 100 MCG/2 ML VIAL IV PRN (06:56)
[2019-11-04] MEDS ORDERED: LIDOCAINE HCL 2% 2 ML VIAL/AMP(20MG/ML) INFIL ONE (07:04)
[2019-11-04] MEDS ORDERED: fentaNYL citrate 100 MCG/2 ML VIAL ONE ×2 (07:04→07:41)
[2019-11-04] MEDS ORDERED: MIDAZOLAM HCL 1 MG/ML 2ML VIAL ONE (07:04)
[2019-11-04] MEDS ORDERED: ONDANSETRON INJ 2 MG/ML 2 ML VIAL ONE (07:04)
[2019-11-04] MEDS ORDERED: PROPOFOL IV EMULSION 10 MG/ML 20 ML VIAL IV ONE ×2 (07:04→07:41)
[2019-11-04] MEDS ORDERED: DEXAMETHASONE SOD INJ 4 MG/ML VIAL ONE (07:04)
[2019-11-04] MEDS ORDERED: ROCURONIUM BROMIDE 10 MG/ML 5 ML VIAL ONE ×3 (07:04→08:42)
[2019-11-04] MEDS ORDERED: ISOSULFAN BLUE 10 MG/ML VIAL 5 ML ONE (07:08)
[2019-11-04] MEDS ORDERED: BUPIVACAINE 0.5 % 5 MG/1 ML MPF 30ML VIAL ONE (07:08)
--- NOTE | 2019-11-04 07:14 | History & Physical Bridge Note ---
Date of Service November 04, 2019 History & Physical Bridge Note I have examined the patient, reviewed the History & Physical and in the interval since the performance of the History & Physical I have noted the following changes of clinical significance: no changes noted
[2019-11-04] MEDS ORDERED: HYDROmorphone INJ 2 MG/ML SYR/VIAL IV ONE ×2 (07:21→18:24)
[2019-11-04] MEDS ORDERED: ACETAMINOPHEN 1000 MG/100 ML IV IV ONE ×2 (07:21→18:24)
[2019-11-04] MEDS ORDERED: TISSEEL FIBRIN SEALANT 4ML TOP ONE (08:36)
[2019-11-04] MEDS ORDERED: NEOSTIGMINE METHYLSULFATE 5 MG/5 ML SYR ONE (08:42)
[2019-11-04] MEDS ORDERED: GLYCOPYRROLATE 0.2 MG/ML VIAL ONE (08:42)
--- NOTE | 2019-11-04 09:32 | Operative Report ---
PG Post Operative Report Pre & Post Diagnosis Operation Date: 11/04/19 07:30 Pre-Op Diagnosis: PELVIC PAIN Post-Op Diagnosis: PELVIC PAIN I identified the patient and participated in the time-out.: Yes Procedure Operation Date: 11/04/19 07:30 Actual Procedures p Robotic Total Laparoscopic Hysterectomy, Cystoscopy(Not Applicable) - Sy Delgado MD, FACOG Patient was given a general anesthetic, prepped and draped in dorsal lithotomy position in yellow fin mari stirrups. Care was taken to position the legs and arms properly with no excess pressure on any area. Pre-operative antibiotics were given and SCDs applied earlier. Kellogg catheter was inserted into her bladder, V-Care manipluator was placed in the uterus and sutured in place. Gloves were changed and then a supra-umbilical incision was made with scalpel, using Oralia technique, we dissected through the subcutaneous fat, fascia, split the rectus muscles and then entered the peritoneal cavity.. Blunt tip Oralia Trochar then inserted and balloon inflated to stabilize the port. CO2 gas was then used to insufflate the peritoneal cavity. Findings. modest bladder flap adhesions, normal uterus and adnexa Deep trendelenberg position was obtained. 2 robotic ports were then placed, one on the left, one on the right side under direct visualization. 11mm bladeless accessory port placed in left upper quadrant under direct visualization. Robot docked. Arm #1 Monopolar jozef, arm #2 Bipolar [place] grasper. Fallopian tubes were identified and removed with the monoplar jozef and removed thru the accessory port. Ureter was identified on each side and followed a normal course. Distal to the left ovary, the blood supply was coagulated with the bipolar [place] and then cut with Jozef. We were well away from the ureter. Round ligament was coagulated and then cut. Uterine vessels were then skeletonized, bladder flap was sharply dissected away with jozef. Uterine vesse ls were then coagulated close to the cervix staying away from the left ureter. Vessels then cut. The exact same process was repeated on the right side taking note of the location of the right ureter at all times. Colpotomy was then performed with the monopolar jozef, once completed, the specimen was removed through the vagina. A sponge in a glove was then placed in the vagina to maintain pneumoperitoneum. Instrument exchange then occurred. Arm #1 became the JYOTI needle wood pile driver operator, Arm # 2 became the Cobra Grasper. 12 inch 2-0 V-Lock 90 day suture was placed through the accessory port. Cuff was closed from left to right, then back taking at least 1cm full thickness bites of vaginal mucosa. Suture was cut so there was no tail, needle removed through the accessory port. Sponge removed from the vagina and seal air tight. Generous irrigation and suction, hemostasis excellent, Tisseal applied to pedicles. Cystoscopy performed and no injury to the bladder, no sutures noted, good strong jets of blue colored dye were noted from both right and left ureter openings. Cystoscope removed and a new kellogg catheter placed. Robot undocked, instruments, ports removed. gas allowed to escape. Incisions injected with Marcaine, fascia closed in the umbilical and a deep stitch into the accessory port with 0-Vicryl. 4-0 subcuticular skin closures on all incisions, dermabond apllied. Sponge and instrument counts correct. Surgeon Sy Delgado MD, FACOG Utilization Management Rn none Estimated Blood Loss 20 Findings Consistent with Post-Op Diagnosis Specimens uterus, cervix Description of Procedure see operation date, actual procedure I attest to the content of the Intraoperative Record and any orders documented therein. Any exceptions are noted below.
--- NOTE | 2019-11-04 10:26 | Anesthesiology Progress Note ---
Date of Service November 04, 2019 Anesthesia Post Procedure Vital Signs Vital Signs: Temp Pulse Pulse Resp BP BP Pulse Ox 11/04/19 10:15 36.4 C L 61 14 152/83 H 96 11/04/19 10:05 56 L 14 143/86 H 96 11/04/19 09:55 60 16 154/93 H 99 11/04/19 09:46 63 17 155/88 H 98 11/04/19 09:36 36.0 C L 73 18 147/86 H 94 11/04/19 06:16 36.6 C 68 18 150/94 H 98 Pain Intensity Abdomen: Pain Intensity: 4 Transfer of Care Handoff Completed per policy Notes Mental Status: alert / awake / arousable and participated in evaluation Patient Amnestic to Procedure: Yes Nausea / Vomiting: adequately controlled Pain: adequately controlled Airway Patency, RR, SpO2: stable & adequate BP & HR: stable & adequate Hydration State: stable & adequate Anesthetic Complications: no major complications apparent
[2019-11-04] MEDS ORDERED: KETOROLAC 30 MG/ML VIAL ONE (10:58)
[2019-11-04] MEDS ORDERED: MAGNESIUM HYDROXIDE SUSP 30 ML UDC PO PRN (11:27)
[2019-11-04] MEDS ORDERED: ALBUTEROL 0.083% NEBU SOLN 3 ML VIAL INH PRN (11:27)
[2019-11-04] MEDS ORDERED: KETOROLAC 30 MG/ML VIAL IV PRN (11:27)
[2019-11-04] MEDS ORDERED: ACETAMINOPHEN 325 MG TAB PO PRN (11:27)
[2019-11-04] MEDS ORDERED: bisacodyL 10 MG SUPP PR PRN (11:27)
[2019-11-04] MEDS ORDERED: LORazepam 0.5 MG TAB PO PRN (11:27)
[2019-11-04] MEDS ORDERED: MEPERIDINE HCL 50 MG/ML CARP IV PRN (11:27)
[2019-11-04] MEDS ORDERED: OXYCODONE/ACETAMINOPHEN 5mg/325mg TAB PO PRN ×2 (11:27)
[2019-11-04] MEDS ORDERED: SIMETHICONE 80 MG CHEW PO PRN (11:27)
[2019-11-04] MEDS ORDERED: ZOLPIDEM TARTRATE 5 MG TAB PO PRN (11:27)
[2019-11-04] MEDS ORDERED: IBUPROFEN 600 MG TAB PO PRN (11:27)
[2019-11-04] MEDS ORDERED: METFORMIN HCL 850 MG TAB PO SCH (21:00)
[2019-11-04] MEDS ORDERED: DOCUSATE SODIUM 100 MG CAP PO SCH (21:00)
[2019-11-04] MEDS ORDERED: CALCIUM CARBONATE 1250MG TAB PO SCH (21:00)
[2019-11-04] MEDS ORDERED: PSYLLIUM 58.6% POWDER PACKET PO SCH (21:00)
[2019-11-04] MEDS ORDERED: lamoTRIgine 25 MG TAB PO SCH (21:00)
[2019-11-04] MEDS ORDERED: lamoTRIgine 100 MG TAB PO SCH (21:00)
[2019-11-05] MEDS ORDERED: allopurinoL 100 MG TAB PO SCH (09:00)
[2019-11-05] MEDS ORDERED: PANTOprazole 40 MG TAB PO SCH (09:00)
[2019-11-05] MEDS ORDERED: SPIRONOLACTONE 25 MG TAB PO SCH (09:00)
--- NOTE | 2019-11-06 07:30 | Discharge Summary ---
Date of Service November 06, 2019 Admission HPI Per Admitting Provider [facility] for menorrhagia and pain Went home say , uncomplicated Discharge Data Procedures Performed Operation Date: 11/04/19 07:30 Actual Procedures p Robotic Total Laparoscopic Hysterectomy, (Not Applicable) - Sy Delgado MD, FACOG s Cystoscopy(Not Applicable) - Sy Delgado MD, FACOG Hospital Course (1) S/P hysterectomy: Met discharge criteria. Went home say day Discussed no heavy lifting and no intercourse at this time and that we will reassess at 6 weeks from surgery. Call if any problems or bleeding Coding Level of Care Code None Diagnoses S/P hysterectomy Z90.710
== END 2019-11-04 18:25 | disposition home or self-care (01) ==
LOC: ASU 05:57 → 4N 05:57